=== PATIENT | female | born 1950 | race Caucasian/White ===

== ENCOUNTER → 2018-03-14 13:59 | Outpatient (CLI) | payer MEDICARE, SELFPAY ==
[2018-03-14 15:12] LABS: Albumin 4.2 g/dL (3.5-5.0); Blood Urea Nitrogen 16 mg/dL (7-17); Calcium 10.4 mg/dL (8.4-10.2); Carbon Dioxide 30 mmol/L (22-32); Chloride 106 mmol/L (98-107); Estimated Glomerular Filt Rate > 60.0 mL/min (>60); Glucose 85 mg/dL (80-110); HEMOLYSIS < 15 (0-50); Potassium 4.5 mmol/L (3.4-5.1); Sodium 144 mmol/L (137-145)
== END ==
PROVIDERS: Visit Provider Physician Assistant
DX: R10.9 Unspecified abdominal pain (principal)
CPT/HCPCS: 80069

== ENCOUNTER 2019-09-25 07:15 | Day surgery (SDC) | payer MEDICARE, SELFPAY ==
--- NOTE | 2019-09-25 | PATH_ITS ---
[facility] Accession Number: [id number] . 01 Material submitted: . PART A: duodenum - DUODENAL BIOPSY PART B: gastrointestinal site - GASTRIC MUCOSA BIOPSY PART C: gastrointestinal site - GASTRIC POLYP BIOPSY PART D: gastrointestinal site - DISTAL ESOPHAGEAL BIOPSY PART E: esophagus - MID ESOPHAGEAL BIOPSY PART F: colon - COLON BIOPSY AT 80CM PART G: colon - RECTAL SIGMOID COLON POLYP AT 25 CM . 01 Clinical history: . B: RULE OUT H.PYLORI . 02 Diagnosis: A. Duodenum, Biopsy: Duodenal mucosa with no diagnostic abnormality. Negative for active inflammation, features of sprue, dysplasia, or malignancy. . B. Stomach, Biopsy: Antral mucosa with no diagnostic abnormality. No evidence of Helicobacter organisms on H/E stain. Negative for intestinal metaplasia. Negative for dysplasia and malignancy. . C. Gastric Polyp, Biopsy: Fundic gland polyp. No evidence of Helicobacter organisms on H/E stain. Negative for intestinal metaplasia. Negative for dysplasia and malignancy. . D. Distal Esophagus, Biopsy: Squamocolumnar junctional mucosa with mild chronic inflammation. Negative for specialized intestinal metaplasia, dysplasia or malignancy. . E. Mid Esophagus, Biopsy: Squamous epithelium with mild chronic inflammation. Intraepithelial eosinophils are not increased. Negative for dysplasia or malignancy. . F. Colon At 80 CM, Biopsy: Tubular adenoma. . G. Rectosigmoid Colon, At 25 CM, Biopsy: Tubulovillous adenoma. Negative for high-grade dysplasia or malignancy. [facility] 09/26/2019 1323 Local . 02 Electronically signed: . Juan Aguilar MD, PhD, Pathologist NPI- [id number] . 01 Gross description: . Part A: DUODENAL BIOPSY: Received in formalin is 1 fragment(s) of harp, soft tissue measuring 0.2 x 0.2 x 0.2 cm submitted entirely in 1 cassette(s) Part B: GASTRIC MUCOSA BIOPSY: Received in formalin is 1 fragment(s) of harp, soft tissue measuring 0.2 x 0.2 x 0.2 cm submitted entirely in 1 cassette(s) Part C: GASTRIC POLYP BIOPSY: Received in formalin is 1 fragment(s) of harp, soft tissue measuring 0.2 x 0.2 x 0.2 cm submitted entirely in 1 cassette(s) Part D: DISTAL ESOPHAGEAL BIOPSY: Received in formalin are 3 fragment(s) of harp, soft tissue measuring 0.1 x 0.1 x 0.1 cm to 0.3 x 0.2 x 0.2 cm submitted entirely in 1 cassette(s) Part E: MID ESOPHAGEAL BIOPSY: Received in formalin is 1 fragment(s) of harp, soft tissue measuring 0.2 x 0.1 x 0.1 cm submitted entirely in 1 cassette(s) Part F: COLON BIOPSY AT 80CM: Received in formalin is 1 fragment(s) of harp, soft tissue measuring 0.2 x 0.2 x 0.2 cm submitted entirely in 1 cassette(s) Part G: RECTAL SIGMOID COLON POLYP AT 25 CM: Received in formalin is 1 fragment of harp soft tissue measuring 1.5 x 1.5 x 1.4 cm. Specimen is sectioned and submitted in its entirety in 3 cassettes. /[facility] [place]/25/20192021 Local . 02 Pathologist provided ICD-10: R12, K62.5, K31.7, K20.9, D12.6, D12.7 . 02 CPT . 344623, 017528, 343785, 961401, 581587, 023303, 320670 Performed at: 01 [facility] [address] [id number] MD Brad Helton MD Phone: [phone] Performed at: 02 [facility] [address] [place], [place] [id number] MD Bita Byers MD Phone: [phone]
[2019-09-25] MEDS: SODIUM CHLORIDE 0.9% 1,000 ML 84 ML IV (07:58)
[2019-09-25 08:09] VITALS: BP 130/76; PULSE 64; RESP 16; TEMP 36.7; O2SAT 99; BMI 22.1
[2019-09-25] MEDS: LIDOCAINE 4% SOLN 50 ML 20 ML TOP (08:25)
--- NOTE | 2019-09-25 08:30 | PM.PREOP ---
Pre-operative Note Interval Note History & Physical reviewed/Exam performed by Physician: Yes Changes to H&P: No H&P completed within 30 days and has changed as indicated here:: no changes ASA Class (for procedural sedation): II
[2019-09-25] MEDS: fentaNYL 250 MCG/5 ML INJ IV (08:34)
[2019-09-25] MEDS: MIDAZOLAM 5 MG/5 ML VIAL IV (08:34)
--- NOTE | 2019-09-25 09:36 | PM.OP.ENDO ---
Operative Date/Time/Diagnoses Date of procedure: 09/25/19 Time of procedure: 09:36 Pre-op diagnosis: Rectal bleeding, melena x1 year Post-op diagnosis: other (Gastritis, hiatal hernia, distal esophagitis, hill grade 4 hiatal hernia; large pedunculated rectosigmoid polyp at 25 cm, a small flat colon polyp at 80 cm ) Procedure & Clinicians Study performed: Diagnostic EGD and colonoscopy, cold forceps biopsies of duodenum, gastric mucosa, gastric polyp, distal esophagus, mid esophagus. Diagnostic colonoscopy, Cold forceps removal of colon polyp at 80 cm, hot snare removal of large pedunculated rectosigmoid polyp at 8:57 p.m. Same procedure as scheduled: Yes Indications: Rectal bleeding, melena Surgeon: Josefina Jiang Procedure Notes SCOAP/Timeout: Performed Procedure in detail: The patient was brought to the room and placed in left lateral decubitus position with all bony prominences padded. A time-out was performed and then the patient was given procedural sedation starting with 2 mg of Versed and [100] mcg of fentanyl. Total of 4 mg of Versed and 150 micro g of fentanyl were given for the entire procedure. Vitals were monitored throughout the procedure and remained stable. Once adequately sedated the procedure was begun. Bite block was placed affect the patient's lips, teeth, and tongue. Gastroscope was placed through the bite block across the tongue into the esophagus without incident. A tubular view of the esophagus was maintained as I advanced the gastroscope down the esophagus into the stomach. I then passed the gastroscope gently through the pylorus and into the duodenal bulb, and flexed into the 2nd and 3rd part of the duodenum. There was some low-grade duodenal inflammation. Cold forceps Biopsies were taken here. I then pulled back into the stomach, and there were some streaks of endoscopic gastritis. No ulcers, active bleeding, or exposed vessels were seen. Biopsies of gastric mucosa were taken. Multiple benign-appearing gastric polyps were seen, consistent with patient's PPI history. One polyp was biopsied. I then flexed the scope and looked up at the cardia, and the patient was seen to have a grade 4 hiatal hernia which was 3 cm in length. I then straightened the scope and pulled it back into the esophagus. There was some mucosal breaks in the Z-line, but no extensions of salmon-colored mucosa coming up into the esophagus number more than a few mm. This area was biopsied. There was some erythema in the mid esophagus. This was biopsied. The patient tolerated procedure well. The scope was then withdrawn from the patient, and attention was turned to the colonoscopy procedure. A rectal exam was performed revealing [no abnormalities]. The colonoscope was then introduced to the rectum and advanced to the cecum in the usual fashion. []The cecum was identified by the appendiceal orifice, the mucosal tri-fold, and the ileocecal valve. The scope was then retracted while rotating side to side and examining each mucosal fold. At 80 cm a small flat polyp was seen, which was removed completely with cold forceps. 25 cm from the anal verge a large pedunculated polyp was seen. Using 24 mm hot snare, the polyp was divided at its neck, and removed. I went back and took another look at the remaining stalk. It appeared clean, and hemostatic. However looking at the polyp, there was really no stalk margin on the polyp itself, so I took another 2 mm margin on the stalk with hot snare. This piece was suctioned up into the scope, but did not arrive in the Lukens trap, and could not be found after extensive investigation, even postprocedure rinsing out the scope, and looking for the specimen. The remaining stump of distal appeared clear of any hypercellular mucosa. The area was tattooed with 3 x 1 mm injections of Ira ink. One injection was done proximal, 1 distal, and 1 just across from the polypectomy site. There was no active bleeding, and no evidence of perforation. [The remainder of the colon was essentially normal.] At the conclusion of the procedure retroflexion was performed and [small grade 1-2 internal hemorrhoids without stigmata of bleeding were seen]. The scope was then withdrawn from the rectum the procedure was concluded. The patient tolerated the procedure well and was transferred to the PACU in stable condition. Scope withdrawal time: 34 Sedation minutes: 58 Findings: gastritis, hiatal hernia, polyp (Large rectosigmoid polyp, completely remove with an additional 2 mm margin on the stalk; small flat polyp at 80 cm in the colon, cold forceps biopsies of gastric mucosa, duodenal mucosa, gastric polyp, distal esophagus, mid esophagus) and possible cancer (Rectosigmoid polyp, completely remove) Specimen(s): other (Large rectosigmoid polyp; small flat polyp at 80 cm in the colon, cold forceps biopsies of gastric mucosa, duodenal mucosa, gastric polyp, distal esophagus, mid esophagus) Complications: none Impression: Low-grade gastritis, duodenitis and esophagitis no significant ulcers. Large rectal polyp, considered the likely source of rectal bleeding. Post-procedure Recommendations: Colonscopy in 1 year (Depending on biopsy results), Continue medication(s) (Continue omeprazole) and Other recommendation (Follow-up depends on biopsy results.) Follow up: as needed Disposition: PACU
[2019-09-25 09:39] VITALS: BP 134/68; PULSE 59; RESP 12; TEMP 36.4; O2SAT 100
[2019-09-25 09:44] VITALS: BP 127/71; PULSE 62; RESP 12; O2SAT 98
[2019-09-25 09:49] VITALS: BP 113/67; PULSE 62; RESP 14; O2SAT 97
[2019-09-25 10:04] VITALS: BP 134/73; PULSE 64; RESP 14; O2SAT 98
== END 2019-09-25 10:25 | disposition home or self-care (01) ==
PROVIDERS: PCP Family Medicine; Referring Provider Surgery; Visit Provider Surgery
PROC: 0DJ08ZZ Inspection of Upper Intestinal Tract, Via Natural or Artificial Opening Endoscopic (ICD-10-PCS; CPT 43235; principal; 2019-09-25 08:30)
PROC: 0DJD8ZZ Inspection of Lower Intestinal Tract, Via Natural or Artificial Opening Endoscopic (ICD-10-PCS; CPT 45378; 2019-09-25 08:30)
DX: K62.5 Hemorrhage of anus and rectum (principal); R12 Heartburn; K44.9 Diaphragmatic hernia without obstruction or gangrene; K29.71 Gastritis, unspecified, with bleeding; D12.6 Benign neoplasm of colon, unspecified; D12.7 Benign neoplasm of rectosigmoid junction; K31.7 Polyp of stomach and duodenum; K64.0 First degree hemorrhoids; K21.0 Gastro-esophageal reflux disease with esophagitis
CPT/HCPCS: 45385; 45380; 45381; 43239; 99152; 99153; J2250; J3010

== ENCOUNTER → 2021-10-14 09:40 | Outpatient (CLI) | payer MEDICARE, SELFPAY ==
--- NOTE | 2021-11-03 14:33 | PM.CARDMON.1 ---
[employer] [employer] Report Referral & Results Date Patient Seen: 10/14/21 Requesting provider: Kemal Sanders Indication: Palpitations Duration of monitoring (days): 14 Diary information: There were 38 patient triggered events and 29 patient diary entries All of these patient events were variably associated with (within 45 seconds) sinus rhythm, PACs, PVCs, SVT, and ventricular trigeminy Data: Minimum heart rate identified was 47 beats per minute at 06:46 on 10/19/2021 Maximum sinus heart rate was 129 beats per minute at 14:26 on 10/25/2021 Maximum overall heart rate was 187 beats per minute at 11:10 on 10/26/2021 during a run of SVT Less than 1% of identified beats were supraventricular ectopic in origin Approximately 2.8% of identified beats were ventricular ectopic in origin which included a 2 minute 18 second run of ventricular trigeminy There were 70 runs of SVT with the fastest being the 4 beat run at the above rate of 187 beats per minute. The longest lasted 19.4 seconds at a rate of 107 beats per minute which suggest more atrial tachycardia than true SVT There were no pauses of 3.0 seconds or longer or episodes of atrial fibrillation identified on this study Impression: 14 day monitoring coordinator demonstrating a variety of dysrhythmias none of which is clearly associated with patient events. No serious dysrhythmias identified on this study but based on frequency of rhythm disturbances PVCs are more likely than other rhythm disturbances to be a source of symptoms. Clinical correlation suggested
== END ==
PROVIDERS: PCP Family Medicine; Referring Provider Family Medicine; Visit Provider Family Medicine
DX: R00.2 Palpitations (principal)
CPT/HCPCS: 93246; 93248

== ENCOUNTER → 2021-11-24 08:54 | Outpatient (CLI) | payer MEDICARE, SELFPAY ==
--- NOTE | 2021-11-24 | DI.ECHO.S_ITS ---
[facility] +---------+ : : [address] : : : : [id number] : : : : Phone: [phone]---------+ Echocardiogram Report + + :Name: GAURAV VENEGAS Study Date: 11/24/2021 Height: 66 in : :[facility] ReadingLocation: Weight: 140 lb : : Gender: Female BSA: 1.7 m2 : :: 1950 Age: 71 yrs BP: 155/80 mmHg: :Reason For Study: DYSPNEA : :Ordering Physician: TARA, : :ELEONORA Performed By: Mansi Qureshi : :Referring: ELEONORA PACHECO : + + Interpretation Summary The left ventricle is normal in size and wall thickness. Left ventricular systolic function appears normal without focal wall motion abnormalities. The ejection fraction is estimated to be 65-70%. Diastolic parameters suggest probable normal left ventricular diastolic function and normal filling pressures. The right ventricle is normal in size and function. The left atrial size is normal. Right atrial size is normal. There is no significant valvular heart disease. The aortic root is normal size. Procedure: A two-dimensional transthoracic echocardiogram with color flow and Doppler was performed. The study quality was technically adequate. There is no prior echocardiogram noted for this patient. The patient was in sinus rhythm with heart rates between 52-66 bpm during the exam. Left Ventricle: The left ventricle is normal in size and wall thickness. Left ventricular systolic function appears normal without focal wall motion abnormalities. The ejection fraction is estimated to be 65-70%. Diastolic parameters suggest probable normal left ventricular diastolic function and normal filling pressures. Right Ventricle: The right ventricle is normal in size and function. Atria: The left atrial size is normal. Right atrial size is normal. There is no Doppler evidence for an interatrial shunt. Mitral Valve: The mitral valve is normal in structure and function. There is trace mitral regurgitation. Aortic Valve: The aortic valve is trileaflet. The aortic valve opens well. There is no aortic valve stenosis. No aortic regurgitation is present. Tricuspid Valve: There is a trace or physiologic amount of tricuspid regurgitation. Pulmonic Valve: The pulmonic valve leaflets are thin and pliable; valve motion is normal. There is no pulmonic valvular regurgitation. There is no significant valvular heart disease. Great Vessels: The aortic root is normal size. The dimensions of the ascending aorta are normal. The IVC is of normal diameter and collapses greater than 50% with a sniff. This suggests a low right atrial pressure of 3 mm Hg. Pericardium/ Pleura There is no pericardial effusion. There is no pleural effusion. MMode/2D Measurements & Calculations LVIDd: 4.4 cm LVOT diam: 1.7 cm LVIDs: 2.7 cm Ao root diam: 3.0 cm FS: 39.0 % asc Aorta Diam: 3.0 cm IVSd: 0.66 cm Ao Arch Diam (Prox Trans): 2.1 cm LVPWd: 0.96 cm LV leyva. diameter/BSA (cm/m^2): 2.6 LV sys. diameter/BSA (cm/m^2): 1.6 LA A2 area: 16.6 cm2 RA long axis: 4.2 cm LA A4 area: 13.7 cm2 RA area: 12.1 cm2 LA length (vol): 5.0 cm RA vol: 29.9 ml LA vol: 38.9 ml RA : 17.4 ml/m2 LA vol index: 22.7 ml/m2 IVC diam: 1.8 cm RVD1 (basal): 2.8 cm RVD2 (mid): 2.7 cm TAPSE: 1.8 cm Doppler Measurements & Calculations Ao V2 max: 178.8 cm/sec LVOT Max Thuan: 160.1 cm/sec Ao V2 mean: 127.7 cm/sec LV V1 max P.3 mmHg Ao max P.8 mmHg LV V1 VTI: 37.0 cm Ao mean P.2 mmHg LUIS(I,D): 2.1 cm2 Ao V2 VTI: 40.8 cm LUIS(V,D): 2.1 cm2 sev ratio: 0.91 LUIS indexed to BSA (cm^2/m^2): 1.2 MV E max thuan: 100.5 cm/sec PA V2 max: 99.3 cm/sec MV A max thuan: 88.9 cm/sec PA V2 mean: 64.5 cm/sec MV E/A: 1.1 PA mean P.0 mmHg Med Peak E' Thuan: 7.0 cm/sec PA pr(Accel): 20.8 mmHg E/E' med: 14.3 Lat Peak E' Thuan: 8.7 cm/sec E/E' lat: 11.6 E/e' average: 12.9 MV dec time: 0.25 sec SV(LVOT): 87.3 ml Reading Physician:10:55 AM
--- NOTE | 2021-11-24 | DI.NM.S_ITS ---
DATE OF SERVICE: PROCEDURE: Exercise perfusion study. INDICATION: Shortness of breath. RADIOPHARMACEUTICAL: 23.8 mCi technetium-99m Myoview IV was injected at stress and 8.5 mCi technetium-99m Myoview IV was injected at rest. CARDIAC STRESS: The patient underwent exercise perfusion study under the supervision of an attending staff. The patient walked on Abdulkadir protocol for 6 minutes and achieved 94% of target heart rate and normal blood pressure response . Resting blood pressure 140/82 mmHg. Peak blood pressure 184/80 mmHg. Achieved 7 METs of workload. Functional aerobic impairment positive 9 percent. Baseline rhythm was sinus. During stress, no convincing ischemic changes seen. Rare PVCs. No chest discomfort. Had some mild shortness of breath. Mulino fatigued during exercise. RAW DATA: Increased subdiaphragmatic activity. GATED STUDY: Stress LV ejection fraction 88%. No wall motion abnormalities. TID ratio 0.87, which is within normal limits. Lung/heart ratio 0.31, which is within normal limits. MYOCARDIAL PERFUSION SCAN: Stress supine, resting supine and stress prone images were compared to each other. Stress supine and resting supine images revealed minimally decreased perfusion of anterior apex which got resolved during prone images suggestive of breast tissue attenuation artifact. Stress prone images revealed normal myocardial perfusion. CONCLUSION: This is a normal myocardial perfusion study. Diminished exercise tolerance. Normal hemodynamic response. The stress left ventricular ejection fraction is 88 percent. No anginal symptoms. No significant sustained arrhythmias seen. Overall low-risk exercise perfusion study. Charo Chris - JUAREZ/eber/REVA doc#: [id number]/job#: [id number] dd: 11/24/2021 17:18:00 dt: 11/24/2021 19:34:00 DICTATING MD/COPIES TO: Erica Gonzalez MD COPIES MNE: CEDRIC;
[2021-11-24 10:41] LABS: COVID19 -Nasal RAPID Negative (Negative)
== END ==
PROVIDERS: PCP Family Medicine; Referring Provider Family Medicine; Visit Provider Family Medicine
DX: R06.09 Other forms of dyspnea (principal); R07.89 Other chest pain; R00.2 Palpitations; Z86.16 Personal history of COVID-19; Z20.822 Contact with and (suspected) exposure to COVID-19
CPT/HCPCS: 78452; 87635; 93017; 93306; A9502

== ENCOUNTER 2022-09-19 11:42 | Emergency (ER) | payer MEDICARE, SELFPAY ==
[2022-09-19] VITALS (29 sets, daily range): BP systolic 122–173; BP diastolic 65–88; PULSE 59–72; RESP 12–31; TEMP 36.4–36.5; O2SAT 91–99; BMI 21.7
--- NOTE | 2022-09-19 11:52 | DI.RAD.S_ITS ---
PROCEDURE: XR CHEST 1V INDICATIONS: chest pain TECHNIQUE: One view of the chest was acquired. COMPARISON: None. FINDINGS: Surgical changes and devices: None. Lungs and pleura: Lungs are clear. No pleural effusions or pneumothorax. Mediastinum: Mediastinal contours appear normal. Heart size is normal. Bones and chest wall: No suspicious bony lesions. Overlying soft tissues appear unremarkable. Left cervical rib. IMPRESSION: No acute cardiopulmonary findings. Dictated by: Robert Pemberton M.D. on 09/19/2022 at 11:25 Approved by: Robert Pemberton M.D. on 09/19/2022 at 11:26
[2022-09-19 12:03] LABS: Add Manual Diff / Slide Review NO; Basophils Absolute Auto 100 /uL (0-100); Basophils Percent Auto 1.1 % (0-2); Eosinophils Absolute Auto 500 /uL (0-450); Eosinophils Percent Auto 7.1 % (2-4); Hematocrit 41.1 % (36-46); Hemoglobin 13.8 g/dL (12.0-16.0); Lymphocytes Absolute Auto 2700 /uL (1100-4500); Lymphocytes Percent Auto 38.7 % (25-40); Mean Corpuscular HGB Conc 33.6 % (30-36); Mean Corpuscular Hemoglobin 31.5 PG (26-34); Mean Corpuscular Volume 93.6 fL (80-100); Monocytes Absolute Auto 600 /uL (0-900); Neutrophils Absolute Auto 3100 /uL (1500-7000); Neutrophils Percent Auto 44.1 % (50-75); Platelet Count 260 X10^3/uL (150-400); Red Cell Distribution Width 13.4 % (11.6-14.8)
[2022-09-19 12:08] LABS: Prothrombin Time 11.4 SECONDS (10.1-12.7)
[2022-09-19 12:10] LABS: PTT Partial Thromboplastin Tim 33 SECONDS (26-36)
[2022-09-19 12:12] LABS: Alanine Aminotransferase 25 IU/L (<35); Albumin 4.3 g/dL (3.5-5.0); Albumin Globulin Ratio 1.3 (1.0-2.8); Alkaline Phosphatase 80 U/L (38-126); Aspartate Aminotransferase 28 IU/L (14-36); BUN Creatinine Ratio 25.5 (6-22); Bilirubin Total 0.5 mg/dL (0.2-1.3); Blood Urea Nitrogen 24 mg/dL (7-17); Calcium 10.6 mg/dL (8.4-10.2); Carbon Dioxide 30 mmol/L (22-32); Chloride 103 mmol/L (98-107); Creatine Kinase 86 U/L (30-135); Estimated Glomerular Filt Rate > 60 mL/min (>60); Globulin 3.4 g/dL (1.7-4.1); Glucose 89 mg/dL (80-110); HEMOLYSIS < 15 (0-50); Lipase 68 U/L (23-300); Sodium 138 mmol/L (137-145); Total Protein 7.7 g/dL (6.3-8.2)
[2022-09-19 12:23] LABS: Troponin I 0.054 ng/mL (0.01-0.034)
--- NOTE | 2022-09-19 13:36 | ED.CHESTPAIN ---
HPI - Chest Pain General Chief Complaint: Shortness of Breath/Dyspnea Stated Complaint: lung congestion 2 mon, cough, low oxy, wheez Time Seen by Provider: 09/19/22 12:07 History of Present Illness HPI narrative: Patient comes to the ER today with chest pain. She is noticed over the past week or so that with any degree of exertion she has precordial pain that is aching and burning and radiating to her neck and jaw and shoulders and arms. The pain will last as long as she is exerting herself and then takes 10-15 minutes to resolve completely. She has been having a little bit more trouble with her asthma lately but the shortness of breath does not seem to be more prominent when she is having the chest pain. It is not associated with nausea or diaphoresis. She has no known coronary disease to her knowledge. She does not smoke cigarettes. She does not have hypertension or diabetes. Related Data Home Medications Medication Instructions Recorded Confirmed myalmgx-vuttewwmyuyvh-xtpetikc 250 1 tab PO DAILY ##0 07/04/17 09/25/19 mg-250 mg-65 mg tablet (Excedrin Migraine) omeprazole magnesium 20 mg 20 mg PO DAILY 09/07/19 09/25/19 capsule,delayed release (Acid Fly Rail Operator (omeprazole)) plexus supplements PO 09/07/19 Previous Rx's Medication Instructions Recorded albuterol sulfate 90 mcg/actuation 1 inhalation inhalation Q4-6H PRN 01/30/18 aerosol inhaler cough #8 grams Allergies Allergy/AdvReac Type Severity Reaction Status Date / Time Rizdxsu-BHC-MvY Reductase Allergy Severe Back Pain Verified 09/25/19 08:02 Inhibitor [Hlvpbyo-Cbj-Aqa Reductase Inhibitor] morphine Allergy Intermediate Hives Verified 09/25/19 08:02 Patient History Surgical History History of dental surgery History of tonsillectomy and adenoidectomy Hx of dilation and curettage Family History Father Heart disease Gallstones Brother Cancer Social History marital status: household members: spouse and children occupational status: employed Smoking Status: Never smoker alcohol intake: never substance use type: does not use Smoking Status: Never smoker Substance Use Type: does not use Exam Narrative Exam Narrative: GENERAL: Alert, cooperative and in no distress. HEAD: Atraumatic. Normocephalic. EYES: Sclera are clear without icterus. Extraocular movements are full. ENT: No rhinorrhea. Oropharynx is moist. Mouth exam is benign. NECK: Supple. Full range of motion. CARDIOVASCULAR: Normal rate and rhythm without murmur gallop or rub. RESPIRATORY: Clear to auscultation. Breath sounds equal bilaterally. No wheezes, rales, or rhonchi. GASTROINTESTINAL: Abdomen soft, non-tender, nondistended. EXTREMITIES: No edema, full range of motion. No obvious trauma. BACK: Normal inspection, no CVA tenderness. NEURO: Nonfocal examination, normal speech, normal gait. SKIN: No rash or erythema of visible areas PSYCH: Normally oriented. Normal range of affect. Appropriate behavior Initial Vital Signs Initial Vital Signs: Vital Signs Pulse Rate 70 09/19/22 11:48 Pulse Oximetry 98 09/19/22 11:48 Course Course Course Narrative: Initial troponin is mildly elevated. Aspirin is administered. We will get a 2nd troponin. I am certainly considering hospitalization. She is symptom-free at this time. I spoke to Dr. Powers about this patient who agrees to consult on the patient if the patient comes to hit her facility. She believes the patient needs detailed ischemic workup. I also spoke to Feliciano Calvillo from the hospitalist group who agrees to accept the patient onto his service. Critical care time is 35 minutes. Orders Ordered: ED Orders 09/19/22 11:52 XR chest 1V Stat 09/19/22 11:53 Complete Blood Count AUTO DIFF Stat Comprehensive Metabolic Panel Stat Lipase Stat Magnesium Stat PTT Partial Thromboplastin Saman Stat Prothrombin Time INR Stat Troponin & CK Cardiac Panel Stat 09/19/22 11:57 EKG-12 Lead Stat 09/19/22 13:44 Trop I [Troponin I] Stat 09/19/22 14:46 COVID19 -Nasal RAPID Stat Heparin Sodium/Dextrose (Heparin Drip) 25,000 unit in 500 mls @ 14.696 mls/hr IV CONT CAMELIA; Protocol Discontinued Medications Aspirin (Aspirin 81 Mg Chew Tab) 324 mg PO NOW ONE Stop: 09/19/22 14:51 Aspirin (Aspirin Ec 81 Mg Tablet) 81 mg PO NOW ONE Stop: 09/19/22 15:15 Heparin Sodium (Porcine) (Heparin 5,000 Unit/Ml Vial) 4,000 unit IV NOW ONE Stop: 09/19/22 14:56 Vital Signs Vital signs: Vital Signs - 8 hr 09/19/22 11:52 09/19/22 11:48 09/19/22 12:00 Temperature 97.7 F Pulse Rate 72 70 69 Respiratory Rate 16 20 Blood Pressure 173/88 H Pulse Oximetry 98 98 99 Oxygen Delivery Method Room Air 09/19/22 12:30 09/19/22 13:00 09/19/22 13:13 Temperature Pulse Rate 64 65 Respiratory Rate 20 21 Blood Pressure 138/76 Pulse Oximetry 94 93 Oxygen Delivery Method 09/19/22 13:13 09/19/22 13:30 09/19/22 14:00 Temperature Pulse Rate 60 64 59 L Respiratory Rate 15 20 18 Blood Pressure Pulse Oximetry 94 92 94 Oxygen Delivery Method 09/19/22 14:30 Temperature Pulse Rate 62 Respiratory Rate 21 Blood Pressure Pulse Oximetry 95 Oxygen Delivery Method MDM - Chest Pain Lab Data 09/19/22 11:53 09/19/22 11:53 Labs: Lab Results 09/19/22 09/19/22 09/19/22 Range/Units 11:53 11:53 11:53 WBC 7.0 (4.5-11.0) X10^3/uL RBC 4.40 (4.0-5.2) X10^6/uL Hgb 13.8 (12.0-16.0) g/dL Hct 41.1 (36-46) % MCV 93.6 (80-100) fL MCH 31.5 (26-34) PG MCHC 33.6 (30-36) % RDW 13.4 (11.6-14.8) % Plt Count 260 (150-400) X10^3/uL Neut % (Auto) 44.1 L (50-75) % Lymph % (Auto) 38.7 (25-40) % [place] % (Auto) 9.0 (3-14) % Eos % (Auto) 7.1 H (2-4) % Baso % (Auto) 1.1 (0-2) % Neut # (Auto) 3100 (2833-9213) /uL Lymph # (Auto) 2700 (5765-5629) /uL [place] # (Auto) 600 (0-900) /uL Eos # (Auto) 500 H (0-450) /uL Baso # (Auto) 100 (0-100) /uL PT 11.4 (10.1-12.7) SECONDS INR 1.0 (0.9-1.3) APTT 33 (26-36) SECONDS Sodium 138 (137-145) mmol/L Potassium 4.0 (3.4-5.1) mmol/L Chloride 103 (98-107) mmol/L Carbon Dioxide 30 (22-32) mmol/L BUN 24 H (7-17) mg/dL Creatinine 0.94 (0.52-1.04) mg/dL Estimated GFR > 60 (>60) mL/min BUN/Creatinine Ratio 25.5 H (6-22) Glucose 89 (80-110) mg/dL Calcium 10.6 H (8.4-10.2) mg/dL Magnesium 2.0 (1.6-2.3) mg/dL Total Bilirubin 0.5 (0.2-1.3) mg/dL AST 28 (14-36) IU/L ALT 25 (<35) IU/L Alkaline Phosphatase 80 (38-126) U/L Total Creatine Kinase 86 (30-135) U/L CK-MB (CK-2) TNP CK-MB (CK-2) Rel Index TNP Troponin I 0.054 H (0.01-0.034) ng/mL Total Protein 7.7 (6.3-8.2) g/dL Albumin 4.3 (3.5-5.0) g/dL Globulin 3.4 (1.7-4.1) g/dL Albumin/Globulin Ratio 1.3 (1.0-2.8) Lipase 68 (23-300) U/L SARS-CoV-2 (PCR) (Negative) 09/19/22 09/19/22 Range/Units 13:44 14:46 WBC (4.5-11.0) X10^3/uL RBC (4.0-5.2) X10^6/uL Hgb (12.0-16.0) g/dL Hct (36-46) % MCV (80-100) fL MCH (26-34) PG MCHC (30-36) % RDW (11.6-14.8) % Plt Count (150-400) X10^3/uL Neut % (Auto) (50-75) % Lymph % (Auto) (25-40) % [place] % (Auto) (3-14) % Eos % (Auto) (2-4) % Baso % (Auto) (0-2) % Neut # (Auto) (0980-1082) /uL Lymph # (Auto) (0658-2482) /uL [place] # (Auto) (0-900) /uL Eos # (Auto) (0-450) /uL Baso # (Auto) (0-100) /uL PT (10.1-12.7) SECONDS INR (0.9-1.3) APTT (26-36) SECONDS Sodium (137-145) mmol/L Potassium (3.4-5.1) mmol/L Chloride (98-107) mmol/L Carbon Dioxide (22-32) mmol/L BUN (7-17) mg/dL Creatinine (0.52-1.04) mg/dL Estimated GFR (>60) mL/min BUN/Creatinine Ratio (6-22) Glucose (80-110) mg/dL Calcium (8.4-10.2) mg/dL Magnesium (1.6-2.3) mg/dL Total Bilirubin (0.2-1.3) mg/dL AST (14-36) IU/L ALT (<35) IU/L Alkaline Phosphatase (38-126) U/L Total Creatine Kinase (30-135) U/L CK-MB (CK-2) CK-MB (CK-2) Rel Index Troponin I 0.073 H (0.01-0.034) ng/mL Total Protein (6.3-8.2) g/dL Albumin (3.5-5.0) g/dL Globulin (1.7-4.1) g/dL Albumin/Globulin Ratio (1.0-2.8) Lipase (23-300) U/L SARS-CoV-2 (PCR) Negative (Negative) Urine Dip Bedside Urine Glucose Negative Bedside Urine Bilirubin - Negative Bedside Urine Ketone - Negative Urine Specific [employer] 1.010 Bedside Urine Occult Blood - Negative Bedside Urine pH 7.0 Bedside Urine Protein - Negative Bedside Urine Urobilinogen - Negative Bedside Urine Nitrite - Negative Bedside Urine Leukocytes - Negative Esterase Critical Care Time Critical Care Time Critical Care Time: Yes Total Critical Care Time: 35 Attestation: Time spent in consultation with other providers interpreting in ordering lab and imaging tests. Discussion and consent with the patient. Discharge Plan Departure Patient Disposition: [facility] Clinical Impression: Acute non-ST elevation myocardial infarction (NSTEMI) Prescriptions: No Action albuterol sulfate 90 mcg/actuation HFA aerosol inhaler 1 inhalation INHALATION Q4-6H PRN (Reason: cough) Qty: 8 0RF Rx Instructions: administer with spacer Excedrin Migraine 1 EACH tablet 1 tab PO DAILY Qty: 0 omeprazole magnesium [Acid Fly Rail Operator (omeprazole)] 20 mg capsule,delayed release(DR/EC) 20 mg PO DAILY plexus supplements PO Referrals: Kemal Sanders MD [Primary Care Provider] -
[2022-09-19 14:26] LABS: Troponin I 0.073 ng/mL (0.01-0.034)
[2022-09-19 15:10] LABS: COVID19 -Nasal RAPID Negative (Negative)
[2022-09-19] MEDS: HEPARIN 5,000 UNIT/ML VIAL 4000 UNIT IV (16:40)
[2022-09-19] MEDS: HEPARIN DRIP 25,000 UNIT/500 ML IV.SOLN 14.696 UNIT IV (16:46)
[2022-09-19] MEDS: ASPIRIN EC 81 MG TABLET PO (16:55)
--- NOTE | 2022-09-19 18:31 | PC.NURSE ---
pt. being xfer to [facility] via [facility] p/u is arranged for 20:00. Philly @ [facility] gave RN report number [phone], uncertain of RN will be at [facility] because of shift change.
--- NOTE | 2022-09-19 19:26 | PC.NURSE ---
Report given to Araceli @ [facility] [phone] @[id number]
== END 2022-09-19 20:09 | disposition short-term general hospital (02) ==
PROVIDERS: Emergency Provider Family Medicine Addiction Medicine; PCP Family Medicine
DX: I21.4 Non-ST elevation (NSTEMI) myocardial infarction (principal); Z20.822 Contact with and (suspected) exposure to COVID-19
CPT/HCPCS: 36415; 71045; 80053; 81003; 82550; 83690; 83735; 84484; 85025; 85610; 85730; 87635; 93005; 93010; 96374; 99284; 99291; C9803; J1644

== ENCOUNTER → 2025-01-07 16:34 | Outpatient (CLI) | payer MEDICARE, SELFPAY ==
--- NOTE | 2025-01-07 16:36 | DI.US.S_ITS ---
PROCEDURE: US PERIPH VENOUS LOW EXTREM LT INDICATIONS: phlebitis of lt leg TECHNIQUE: Real-time imaging, as well as color and pulse Doppler interrogation, were performed of the lower extremity deep veins from the inguinal ligament to the popliteal fossa, with documentation of the visualized calf veins. COMPARISON: None. FINDINGS: The common femoral, femoral, popliteal, and the posterior tibial veins are normally compressible, and free of intraluminal thrombus. Color and pulse Doppler demonstrate normal phasic intraluminal flow. Again noted relatively unchanged is occlusive thrombus diffusely throughout the greater saphenous vein from approximately 5 cm from the junction with the common femoral vein into the lower leg. IMPRESSION: Diffuse occlusive thrombus relatively unchanged throughout the greater saphenous vein and superficial varicose veins. No deep vein thrombosis as discussed above. Dictated by: Feliciano Phillips M.D. on 01/08/2025 at 9:23 Approved by: Feliciano Phillips M.D. on 01/08/2025 at 9:46
== END ==
PROVIDERS: PCP Family Medicine; Referring Provider Family Medicine; Visit Provider Family Medicine
DX: I80.02 Phlebitis and thrombophlebitis of superficial vessels of left lower extremity (principal)
CPT/HCPCS: 93971

== ENCOUNTER 2025-04-05 09:50 | Inpatient (IN) | payer MEDICARE, SELFPAY ==
[2025-04-05] VITALS (25 sets, daily range): BP systolic 122–176; BP diastolic 54–79; PULSE 77–97; RESP 16–28; TEMP 36.1–36.9; O2SAT 88–97; BMI 21.9
--- NOTE | 2025-04-05 09:57 | DI.RAD.S_ITS ---
PROCEDURE: XR CHEST 2V INDICATIONS: sob TECHNIQUE: 2 views of the chest were acquired. COMPARISON: [facility], CT, CT ANGIO CHEST PE PROTOCOL, 02/26/2025, 12:59. [facility], CR, XR CHEST 1V, 02/26/2025, 11:38. [facility], CR, XR CHEST 1V, 09/19/2022, 11:49. FINDINGS: Surgical changes and devices: Multiple EKG leads overlie the thorax. Lungs and pleura: Lungs are clear. No pleural effusions or pneumothorax. Lungs are hyperinflated. Mediastinum: Mediastinal contours are normal. Heart size is normal. Bones and chest wall: No suspicious bony abnormalities. Soft tissues appear unremarkable. IMPRESSION: No acute cardiopulmonary abnormality is seen. Dictated by: Angi Lua M.D. on 04/05/2025 at 11:11 Approved by: Angi Lua M.D. on 04/05/2025 at 11:17
[2025-04-05] MEDS: ALBUTEROL/IPRATROPIUM 3 ML AMPUL INH ×2 (10:02→11:32)
[2025-04-05] MEDS: ALBUTEROL 2.5 MG/3 ML NEB (ADULT) INH ×2 (10:03→19:32)
--- NOTE | 2025-04-05 10:45 | ED_ITS ---
HPI - SOB/Dyspnea General Chief Complaint: Shortness of Breath/Dyspnea Stated Complaint: Shortness of breath Time Seen by Provider: 04/05/25 09:50 Source: patient and EMS Mode of arrival: EMS Limitations: no limitations History of Present Illness HPI Narrative: 74-year-old female history of asthma presents to the emergency department with shortness of breath for 3 days. She has noted wheezing. She has had respiratory infection for 3 days with cough and runny nose. No fever that she knows of. No chest discomfort. No lower extremity swelling. She has history of superficial blood clots and says is prescribed Eliquis, has not missed any doses. Related Data Home Medications ?Medication ?Instructions ?Recorded ?Confirmed plexus supplements 09/07/19 04/05/25 apixaban 5 mg tablet (Eliquis) 5 mg PO BID 04/05/25 pantoprazole 40 mg tablet,delayed 40 mg PO DAILY 04/0504/05/25 release Previous Rx's ?Medication ?Instructions ?Recorded albuterol sulfate 90 mcg/actuation 1 inhalation inhala tion Q4-6H PRN 01/30/18 aerosol inhaler cough #8 grams albuterol sulfate 2.5 mg/3 mL 2.5 mg (3 mL) inhalation Q4-6H PRN 02/26/25 (0.083 %) solution for nebulization shortness of breat h or wheezing #90 mL albuterol sulfate 90 mcg/actuation 2 puff inhalation Q 4-6H PRN 02/26/25 aerosol inhaler shortness of breath or wheez ing #8.5 grams azithromycin 250 mg tablet 250 mg PO DAILY 4 days #4 t abs 04/06/25 (Zithromax) budesonide-formoterol HFA 160 2 puff inhalation BID #1 0.2 grams 04/06/25 mcg-4.5 mcg/actuation aerosol inhaler (Symbicort) prednisone 20 mg tablet 60 mg (3 x 20 mg) PO DAILY # 30 tabs 04/06/25 Allergies Allergy/AdvReac Type Severity Reaction Status Date / Time Csnwsad-PXQ-JgL Reductase Allergy Severe Back Pain Verified 02/26/25 11:35 Inhibitor (Owlavgs-Gpo-Kay Reductase Inhibitor) morphine Allergy Intermediate Hives Verified 02/26/25 11:35 Review of Systems Review of Systems Narrative: Pertinent ROS obtained and negative except as stated in HPI Patient History Surgical History History of dental surgery Hx of dilation and curettage History of tonsillectomy and adenoidectomy Family History Father Heart disease Gallstones Brother Cancer Social History marital status: household members: spouse and children occupational status: employed Smoking Status: Never smoker alcohol intake: never substance use type: does not use Smoking Status: Never smoker Exam Initial Vital Signs Initial Vital Signs: Vital Signs Temperature 98 F 04/05/25 09:59 Pulse Rate 89 04/05/25 09:59 Respiratory Rate 25 H 04/05/25 09:59 Blood Pressure 176/79 H 04/05/25 09:59 Pulse Oximetry 92 04/05/25 09:59 Oxygen Delivery Method Room Air 04/05/25 09:59 Constitutional: 74-year-old female resting in the bed, appears slightly anxious, expiratory wheeze noted Head: NCAT Cardiovascular: RRR, no murmur or rub Pulmonary: Slightly diminished with expiratory wheeze diffusely, slight increased work of breathing Abdominal: soft, non-tender Extremities: No LE edema Skin: warm and dry, no diaphoresis Neurological: Alert and oriented x3 Course Orders Ordered: Discontinued Medications Acetaminophen (Acetaminophen 325 Mg Tablet) 650 mg PO Q6H PRN PRN Reason: Fever/Mild Pain (1-3) Al Hydrox/Mg Hydrox/Simethicone (Mag Hydrox/Alum/Simeth 30 Ml Udc) 30 ml PO Q6HR PRN PRN Reason: Dyspepsia Albuterol (Albuterol 2.5 Mg/3 Ml Neb (Adult)) 2.5 mg INH NOW ONE Stop: 04/05/25 09:58 Last Admin: 04/05/25 10:03 Dose: 2.5 mg Documented By: SUHAIL Albuterol (Albuterol 2.5 Mg/3 Ml Neb (Adult)) 5 mg INH NOW ONE Stop: 04/05/25 13:16 Last Admin: 04/05/25 13:12 Dose: 5 mg Documented By: PERLA Albuterol (Albuterol 2.5 Mg/3 Ml Neb (Adult)) 2.5 mg INH [id number] [facility] Last Admin: 04/06/25 07:47 Dose: 2.5 mg Documented By: SUHAIL(2) Admin: 04/05/25 22:16 Dose: Not Given Documented By: Admin: 04/05/25 19:32 Dose: 2.5 mg Documented By: RAMON Albuterol/Ipratropium (Albuterol/Ipratropium 3 Ml Ampul) 3 ml INH NOW ONE Stop: 04/05/25 09:58 Last Admin: 04/05/25 10:02 Dose: 3 ml Documented By: SUHAIL Albuterol/Ipratropium (Albuterol/Ipratropium 3 Ml Ampul) 3 ml INH NOW ONE Stop: 04/05/25 09:58 Last Admin: 04/05/25 10:03 Dose: Not Given Documented By: SUHAIL Albuterol/Ipratropium (Albuterol/Ipratropium 3 Ml Ampul) 3 ml INH NOW ONE Stop: 04/05/25 11:22 Last Admin: 04/05/25 11:32 Dose: 3 ml Documented By: SUHAIL Apixaban (Apixaban 5 Mg Tablet) 5 mg PO BID [facility] Last Admin: 04/06/25 09:02 Dose: 5 mg Documented By: Admin: 04/05/25 20:09 Dose: 5 mg Documented By: EVAN Budesonide (Budesonide 0.5 Mg/2 Ml Neb) 0.5 mg INH RTBID [facility] Last Admin: 04/06/25 07:47 Dose: 0.5 mg Documented By: SUHAIL(2) Admin: 04/05/25 19:32 Dose: 0.5 mg Documented By: RAMON Azithromycin 500 mg/ Dextrose 250 mls @ 250 mls/hr IV Q24H [facility] Last Infusion: 04/05/25 22:03 Dose: Infused Documented By: Admin: 04/05/25 20:07 Dose: 250 mls/hr Documented By: EVAN Magnesium Hydroxide (Magnesium Hydroxide 30 Ml Udc) 30 ml PO DAILY PRN PRN Reason: Constipation Methylprednisolone (Methylprednisolone Succ 125 Mg/2 Ml Vial) 60 mg IV Q6H [facility] Last Admin: 04/06/25 09:09 Dose: Not Given Documented By: Admin: 04/06/25 00:28 Dose: 60 mg Documented By: Admin: 04/05/25 20:07 Dose: 60 mg Documented By: EVAN Naloxone HCl (Naloxone 0.4 Mg/Ml Vial) 0.2 mg IV Q2MIN PRN PRN Reason: Opiate Reversal Ondansetron HCl (Ondansetron 4 Mg/2 Ml Inj) 4 mg IV Q8HR PRN PRN Reason: Nausea And Vomiting Pantoprazole Sodium (Pantoprazole Dr 40 Mg Tablet) 40 mg PO DAILY [facility] Last Admin: 04/06/25 09:02 Dose: 40 mg Documented By: BRIAN Prednisone (Prednisone 20 Mg Tablet) 40 mg PO NOW ONE Stop: 04/05/25 09:58 Last Admin: 04/05/25 10:08 Dose: 40 mg Documented By: JANAE Vital Signs Vital signs: Vital Signs - 8 hr 04/05/25 09:59 04/05/25 10:03 Temperature 98 F Pulse Rate 89 84 Respiratory Rate 25 H 19 Blood Pressure 176/79 H Pulse Oximetry 92 95 Oxygen Delivery Method Room Air Room Air MDM - SOB/Dyspnea Lab Data 04/05/25 14:55 04/05/25 15:27 Labs: Lab Results 04/05/25 04/05/25 Range/Units 11:20 14:55 WBC 8.4 (4.5-11.0) X10^3/uL RBC 4.47 (4.0-5.2) X10^6/uL Hgb 13.6 (12.0-16.0) g/dL Hct 41.6 (36-46) % MCV 93.1 (80-100) fL MCH 30.5 (26-34) PG MCHC 32.8 (30-36) % RDW 14.5 (11.6-14.8) % Plt Count 230 (150-400) X10^3/uL Neut % (Auto) 93.2 H (50-75) % Lymph % (Auto) 4.9 L (25-40) % [place] % (Auto) 1.5 L (3-14) % Eos % (Auto) 0.2 L (2-4) % Baso % (Auto) 0.2 (0-2) % Neut # (Auto) 7800 H (4071-2251) /uL Lymph # (Auto) 400 L (4355-8098) /uL [place] # (Auto) 100 (0-900) /uL Eos # (Auto) 0 (0-450) /uL Baso # (Auto) 0 (0-100) /uL SARS-CoV-2 (PCR) Negative (Negative) Influenza A (RT-PCR) Flu a negative (NEGATIVE) Influenza B (RT-PCR) Flu b negative (NEGATIVE) RSV (PCR) Negative (Negative) MDM Narrative Medical decision making narrative: 74-year-old female history of asthma presents with shortness of breath in the setting of recent URI illness. She received DuoNeb in route and feeling a bit improved but not at baseline. We will give additional DuoNeb, obtain two-view chest x-ray to evaluate for possible pneumonia. Low suspicion for pulmonary embolism given his already anticoagulated and in the absence of chest pain. Clinical picture is most consistent with asthma exacerbation however, if not responding to treatment or new symptoms develop may consider broadening workup On reassessment after serial DuoNebs the patient continues to feel improved although breathing not quite back to baseline. She requires intermittent nasal cannula 2-3 L for hypoxia between treatments. Chest x-ray does not show evidence of pneumonia. Basic laboratories are ordered. Anticipate admission Discharge Plan Departure Patient Disposition: Admitted as Observation Clinical Impression: Asthma exacerbation Admit Date/Time: 04/05/25 15:19 Admit Provider: Kemal Sanders
[2025-04-05 12:10] LABS: Influenza A - CEPHEID Flu A NEGATIVE (NEGATIVE); Influenza B - CEPHEID Flu B NEGATIVE (NEGATIVE)
[2025-04-05 12:11] LABS: COVID-19 CEPHEID 4-PLEX PCR Negative (Negative)
[2025-04-05] MEDS: ALBUTEROL 2.5 MG/3 ML NEB (ADULT) 5 MG INH (13:12)
[2025-04-05 15:02] LABS: Add Manual Diff / Slide Review NO; Hematocrit 41.6 % (36-46); Hemoglobin 13.6 g/dL (12.0-16.0); Lymphocytes Absolute Auto 400 /uL (1100-4500); Mean Corpuscular HGB Conc 32.8 % (30-36); Mean Corpuscular Hemoglobin 30.5 PG (26-34); Mean Corpuscular Volume 93.1 fL (80-100); Platelet Count 230 X10^3/uL (150-400)
--- NOTE | 2025-04-05 15:16 | EKG_ITS ---
[address] [address] Test Date: 2025-04-05 Pat Name: Charo Chris Department: [facility] Room: Gender: Female Manager Digital: MARCEL : 1950 Requested By: Order Number: [id number] Reading MD: Marcus Lua Measurements Intervals [place] Rate: 95 P: 68 [place]: 136 QRS: 61 QRSD: 94 T: 70 QT: 380 QTc: 477 Interpretive Statements Normal sinus rhythm Electronically Signed On 04-05-2025 18:46:38 PDT by Marcus Lua
[2025-04-05 16:02] LABS: Blood Urea Nitrogen 15 mg/dL (7-17); Calcium 10.8 mg/dL (8.4-10.2); Carbon Dioxide 26 mmol/L (22-32); Chloride 106 mmol/L (98-107); Estimated Glomerular Filt Rate > 60 mL/min (>60); Glucose 157 mg/dL (70-99); HEMOLYSIS < 15 (0-50); Potassium 3.8 mmol/L (3.4-5.1); Sodium 137 mmol/L (137-145)
--- NOTE | 2025-04-05 18:20 | P.HP_ITS ---
History of Present Illness History of Present Illness Date Patient Seen: 04/05/25 Time Patient Seen: 18:20 Date of Onset of Symptoms: 04/05/25 Chief complaint: Shortness of breath Narrative: Patient is a 74-year-old female who has history of asthma. Three weeks ago she was seen in the emergency room for increasing shortness a breath. She was given nebulizers and 5 days of steroids and she cleared. Three days ago she started having issues again. Patient has had no fevers no chills but definitely short of breath. Using her inhaled albuterol. She had been on a Advair similar inhaler in the past but has not been using it. She has had no other changes just progressive shortness of breath. No one else around her has been sick. She does feel like sometimes she gets a cold and this is what happens. There was no other changes. Patient is otherwise healthy with no major issues. Has a history of reflux. Has a history of superficial thrombophlebitis a goes to her upper thigh so she was started on anticoagulation. Has been on that. She has no other significant changes [facility] Surgical History History of dental surgery Hx of dilation and curettage History of tonsillectomy and adenoidectomy Family History Father Heart disease Gallstones Brother Cancer Social History marital status: household members: spouse and children occupational status: employed Smoking Status: Never smoker alcohol intake: never substance use type: does not use Meds Home Medications and Allergies Home Medications ?Medication ?Instructions ?Recorded ?Confirmed ?Type albuterol sulfate 90 mcg/actuation 1 inhalation inhala tion Q4-6H PRN 01/30/18 04/05/25 Rx aerosol inhaler cough #8 grams plexus supplements 09/07/19 04/05/25 History albuterol sulfate 2.5 mg/3 mL 2.5 mg (3 mL) inhalation Q4-6H PRN 02/26/25 04/05/25 Rx (0.083 %) solution for nebulization shortness of breat h or wheezing #90 mL albuterol sulfate 90 mcg/actuation 2 puff inhalation Q 4-6H PRN 02/26/25 04/05/25 Rx aerosol inhaler shortness of breath or wheez ing #8.5 grams apixaban 5 mg tablet (Eliquis) 5 mg PO BID 04/05/25 History pantoprazole 40 mg tablet,delayed 40 mg PO DAILY 04/0504/05/25 History release Allergies Allergy/AdvReac Type Severity Reaction Status Date / Time [id number]-[id number] Reductase Allergy Severe Back Pain Verified 02/26/25 11:35 Inhibitor (Bgffsyq-Bzj-Lsp Reductase Inhibitor) morphine Allergy Intermediate Hives Verified 02/26/25 11:35 Review of Systems Review of Systems Narrative: Negative except as above Exam Vital Signs (past 8 hours): - 04/05/25 10:45 04/05/25 11:00 04/05/25 11:00 Temperature Pulse Rate 80 79 Respiratory Rate 20 21 Blood Pressure 152/76 H Pulse Oximetry 88 L 90 L Oxygen Delivery Method Room Air Room Air Oxygen Flow Rate 04/05/25 11:20 04/05/25 11:20 04/05/25 11:30 Temperature Pulse Rate 77 Respiratory Rate 23 Blood Pressure 131/79 154/76 H Pulse Oximetry 93 Oxygen Delivery Method Nasal Cannula Oxygen Flow Rate 2 04/05/25 11:30 04/05/25 11:33 04/05/25 12:00 Temperature Pulse Rate 77 81 88 Respiratory Rate 21 20 Blood Pressure Pulse Oximetry 97 96 93 Oxygen Delivery Method Nasal Cannula Nasal Cannula Room Air Oxygen Flow Rate 2 3 04/05/25 12:00 04/05/25 12:30 04/05/25 12:30 Temperature Pulse Rate 86 Respiratory Rate Blood Pressure 160/76 H 153/72 H Pulse Oximetry 92 Oxygen Delivery Method Oxygen Flow Rate 04/05/25 12:30 04/05/25 12:30 04/05/25 12:53 Temperature Pulse Rate 86 Respiratory Rate 26 H Blood Pressure 153/72 H Pulse Oximetry 92 90 L Oxygen Delivery Method Room Air Room Air Oxygen Flow Rate 04/05/25 13:00 04/05/25 13:00 04/05/25 13:15 Temperature Pulse Rate 86 86 Respiratory Rate 28 H Blood Pressure 148/73 H Pulse Oximetry 94 95 Oxygen Delivery Method Nasal Cannula Oxygen Flow Rate 2 04/05/25 13:30 04/05/25 13:30 04/05/25 14:00 Temperature Pulse Rate 86 91 H Respiratory Rate 23 Blood Pressure 156/71 H Pulse Oximetry 95 94 Oxygen Delivery Method Nasal Cannula Oxygen Flow Rate 2 04/05/25 14:00 04/05/25 14:30 04/05/25 14:30 Temperature Pulse Rate 92 H Respiratory Rate 24 Blood Pressure 143/69 H 149/69 H Pulse Oximetry 92 Oxygen Delivery Method Nasal Cannula Oxygen Flow Rate 2 04/05/25 15:00 04/05/25 15:00 04/05/25 15:30 Temperature Pulse Rate 92 H 91 H Respiratory Rate Blood Pressure 145/69 H Pulse Oximetry 93 94 Oxygen Delivery Method Nasal Cannula Oxygen Flow Rate 2 04/05/25 15:30 04/05/25 15:52 04/05/25 16:00 Temperature 98.4 F Pulse Rate Respiratory Rate Blood Pressure 141/66 H 129/67 Pulse Oximetry Oxygen Delivery Method Oxygen Flow Rate 04/05/25 16:00 04/05/25 16:30 04/05/25 16:30 Temperature Pulse Rate 94 H 92 H Respiratory Rate Blood Pressure 132/63 Pulse Oximetry 95 94 Oxygen Delivery Method Oxygen Flow Rate 04/05/25 17:00 04/05/25 17:00 04/05/25 17:44 Temperature 96.9 F L Pulse Rate 88 91 H Respiratory Rate 18 Blood Pressure 132/61 143/63 H Pulse Oximetry 92 91 Oxygen Delivery Method Nasal Cannula Oxygen Flow Rate 2 Oxygen Delivery Method Nasal Cannula Oxygen Flow Rate 2 Narrative Exam Narrative: Alert female in no acute distress on oxygen and relatively short with her breathing. HEENT exam is unremarkable neck supple without adenopathy JVD or bruits lungs with decreased breath sounds throughout and wheeze. No rhonchi. No retractions Heart is regular rate and rhythm. Abdomen is benign extremities no active palpable masses Objective Labs 04/05/25 14:55 04/05/25 15:27 Labs: Laboratory Results - last 24 hr 04/05/25 04/05/25 04/05/25 11:20 14:55 15:27 WBC 8.4 RBC 4.47 Hgb 13.6 Hct 41.6 MCV 93.1 MCH 30.5 MCHC 32.8 RDW 14.5 Plt Count 230 Neut % (Auto) 93.2 H Lymph % (Auto) 4.9 L [place] % (Auto) 1.5 L Eos % (Auto) 0.2 L Baso % (Auto) 0.2 Neut # (Auto) 7800 H Lymph # (Auto) 400 L [place] # (Auto) 100 Eos # (Auto) 0 Baso # (Auto) 0 Sodium 137 Potassium 3.8 Chloride 106 Carbon Dioxide 26 BUN 15 Creatinine 0.69 Estimated GFR > 60 BUN/Creatinine Ratio 21.7 Glucose 157 H Calcium 10.8 H SARS-CoV-2 (PCR) Negative Influenza A (RT-PCR) Flu a negative Influenza B (RT-PCR) Flu b negative RSV (PCR) Negative Assessment & Plan Assessment & Plan narrative: Acute asthma exacerbation. Probably viral but will cover with Zithromax. Start with IV. Can switch to oral quickly. Patient failed outpatient oral steroids at this point will start Solu-Medrol. We will continue albuterol nebulizations will add budesonide inhaled steroid. And can switch to inhaler when improving. Hopefully will be improved tomorrow but will have to see how quickly she turns the corner. Could be up to 72 hours. Will just have to see how she feels. No other changes. Respiratory therapy consult. Continue oxygen as needed Superficial DVT approaching the deep venous system. On Eliquis. Will continue. History of reflux. Will replace usual meds DVT prophylaxis on Eliquis GI prophylaxis not needed Code status full Disposition. Patient actually very tight right now. But feels like she is improved. Will continue supportive care and aggressive management of her asthma. She will need long-term outpatient treatment. With inhaled steroids but will see how things go. Time-Based Coding :: [TOTAL MINUTES] spent with patient and on the chart (including review of chart, obtaining history, exam, reviewing outside data, placing orders, documenting exam and treatment plan, and counseling patient) on [DATE]. Quality VTE Deep Vein Thrombosis/Pulmonary Embolism Present on Admission: No
[2025-04-05] MEDS: BUDESONIDE 0.5 MG/2 ML NEB INH (19:32)
[2025-04-05] MEDS: methylPREDNISolone succ 125 MG/2 ML VIAL 60 MG IV (20:07)
[2025-04-05] MEDS: AZITHROMYCIN 500 MG in DEXTROSE 5% IN WATER 250 ML 250 MG IV (20:07)
[2025-04-05] MEDS: APIXABAN 5 MG TABLET PO (20:09)
[2025-04-06] MEDS: methylPREDNISolone succ 125 MG/2 ML VIAL 60 MG IV (00:28)
[2025-04-06 06:00] VITALS: BP 141/67; PULSE 75; RESP 16; TEMP 36.2; O2SAT 94
[2025-04-06 07:00] VITALS: O2SAT 95
[2025-04-06 07:30] VITALS: BP 117/65; PULSE 88; RESP 16; TEMP 35.8; O2SAT 91
[2025-04-06 07:47] VITALS: PULSE 85; RESP 18; O2SAT 93
[2025-04-06] MEDS: BUDESONIDE 0.5 MG/2 ML NEB INH (07:47)
[2025-04-06] MEDS: ALBUTEROL 2.5 MG/3 ML NEB (ADULT) INH (07:47)
--- NOTE | 2025-04-06 08:39 | P.DS_ITS ---
History of Present Illness History of Present Illness Chief complaint: Shortness of breath Discharge Providers Provider Date of admission: 04/05/25 15:19 Discharge Date: 04/06/25 Primary care physician: Kemal Sanders MD Discharge provider: Valentino Tam MD Summary Hospital Course Discharge Diagnosis: Acute asthma exacerbation Superficial DVT Reflux Hospital Course: Patient admitted to the hospital with acute exacerbation of asthma. Symptoms have been going on now for about 4-6 weeks. He is doing many home therapies. Despite this failed outpatient home therapy was admitted to the hospital with IV and oral steroids. Patient states she feels 100% better this morning. In asking to go home. Patient will be discharged home. She will be continued with albuterol. She will be given Zithromax which was started here in the hospital. She will have a prednisone taper. We will go ahead and start her on a inhaled steroid and a long acting beta agonist. Exam Vital Signs (past 8 hours): - 04/06/25 06:00 04/06/25 07:30 04/06/25 07:47 Temperature 97.2 F L 96.5 F L Pulse Rate 75 88 85 Respiratory Rate 16 16 18 Blood Pressure 141/67 H 117/65 Pulse Oximetry 94 91 93 Oxygen Delivery Method Nasal Cannula Oxygen Flow Rate 2 2 Fraction of Inspired Oxygen 24 Fraction of Inspired Oxygen 24 SaO2/FiO2 Ratio 387 Oxygen Delivery Method Nasal Cannula Oxygen Flow Rate 2 Objective Labs 04/05/25 14:55 04/05/25 15:27 Labs: Laboratory Results - last 24 hr 04/05/25 04/05/25 04/05/25 11:20 14:55 15:27 WBC 8.4 RBC 4.47 Hgb 13.6 Hct 41.6 MCV 93.1 MCH 30.5 MCHC 32.8 RDW 14.5 Plt Count 230 Neut % (Auto) 93.2 H Lymph % (Auto) 4.9 L [place] % (Auto) 1.5 L Eos % (Auto) 0.2 L Baso % (Auto) 0.2 Neut # (Auto) 7800 H Lymph # (Auto) 400 L [place] # (Auto) 100 Eos # (Auto) 0 Baso # (Auto) 0 Sodium 137 Potassium 3.8 Chloride 106 Carbon Dioxide 26 BUN 15 Creatinine 0.69 Estimated GFR > 60 BUN/Creatinine Ratio 21.7 Glucose 157 H Calcium 10.8 H SARS-CoV-2 (PCR) Negative Influenza A (RT-PCR) Flu a negative Influenza B (RT-PCR) Flu b negative RSV (PCR) Negative [facility] Surgical History History of dental surgery Hx of dilation and curettage History of tonsillectomy and adenoidectomy Family History Father Heart disease Gallstones Brother Cancer Social History marital status: household members: spouse and children occupational status: employed Smoking Status: Never smoker alcohol intake: never substance use type: does not use Discharge Plan Discharge Plan Patient Disposition: Home Discharge orders & Medications Prescriptions: New azithromycin [Zithromax] 250 mg tablet 250 mg PO DAILY 4 Days Qty: 4 0RF Rx Instructions: start on day 2 of therapy prednisone 20 mg tablet 60 mg PO DAILY Qty: 30 0RF Rx Instructions: 60 mg for 4 days 40 mg for 4 days 20 mg for 4 days 20 mg for 4 day budesonide-formoterol [Symbicort] 160-4.5 mcg/actuation HFA aerosol inhaler 2 puff inhalation BID Qty: 10.2 0RF Continued albuterol sulfate 90 mcg/actuation HFA aerosol inhaler 1 inhalation INHALATION Q4-6H PRN (Reason: cough) Qty: 8 0RF Rx Instructions: administer with spacer (DME) plexus supplements 0 .ROUTE .MEDSUPPLY albuterol sulfate 2.5 mg /3 mL (0.083 %) solution for nebulization 2.5 mg inhalation Q4-6H PRN (Reason: shortness of breath or wheezing) Qty: 90 0RF albuterol sulfate 90 mcg/actuation HFA aerosol inhaler 2 puff inhalation Q4-6H PRN (Reason: shortness of breath or wheezing) Qty: 8.5 0RF pantoprazole 40 mg tablet,delayed release (DR/EC) 40 mg PO DAILY Eliquis 5 mg tablet 5 mg PO BID Follow up/Referrals: Kemal Sanders MD [Primary Care Provider, Family Practice] Visit Report/Discharge Packet Stand Alone Forms: Patient Portal/API, Stroke Signs & Symptoms Discharge Data Primary Care Provider: Kemal Sanders Attending Provider: Kemal Sanders Admit Date/Time: 04/05/25 15:19 Quality VTE Deep Vein Thrombosis/Pulmonary Embolism Present on Admission: No [facility] Charge Codes Discharge inpatient/observation: 22033
[2025-04-06] MEDS: PANTOPRAZOLE DR 40 MG TABLET PO (09:02)
[2025-04-06] MEDS: APIXABAN 5 MG TABLET PO (09:02)
--- NOTE | 2025-04-06 09:28 | PC.NURSE ---
Addendum entered by Chelsea Boateng, RN 04/06/25 10:14: Pt SL D/C'd Home instructions given w/understanding. Pt escorted by staff via W/C to waiting vehicle D/C in stable status Original Note: Pt A/O Continues w/ O2 as needed. SL intact/patent. Independent to [facility] in to see, orders for D/C received. Call light w/in reach, pt calls appropriately for needs. Continue w/plan of care.
--- NOTE | 2025-04-06 12:30 | CM.DANOTE ---
B DCP Assessment note pt is a 74yo F admitted with acute asthma exacerbation. per chart review, lives indep with spouse on [place]. per Yonatan note, cleared to dc home today. pt left prior to being seen by this [facility] ATTENDANT no DCP needs identified per chart review P: dc home today with OP f/u anticipated. no identified barriers to safe dc home. SANDIP Schumacher Discharge Planning/Care Management CM Discharge Assessment Start: 04/05/25 15:27 Freq: Status: Discharge Protocol: Document 04/06/25 12:29 SL (Rec: 04/06/25 12:30 [id number]) Discharge Planning Assessment Assigned Discharge SANDIP Cole Director Of Assessment Provider [facility] Insurance Medicare DPOA/Assigned Charles, spouse Designee Name Contact Information [phone] Advance Directives? No History Provided By Patient,Medical Record Prior Living House Arrangements Household Members spouse,children Independent with ADL Yes 's Is patient alert and Yes oriented? Barriers to No Discharge Discharge Plan Home Transportation spouse/ferry Arrangement Referrals Initiated None needed Review Status In Process Please Provide Date 04/06/25 Initial DC Assessment Was Performed Next Review Type Continued Stay Review
== END 2025-04-06 10:10 | disposition home or self-care (01) | DRG 203 ==
LOC: ED 15:13 → AC 04-06 08:41
PROVIDERS: Admitting Provider Family Medicine; Emergency Provider Student in an Organized Health Care Education/Training Program; PCP Family Medicine; Referring Provider Student in an Organized Health Care Education/Training Program; Visit Provider Family Medicine
DX: J45.901 Unspecified asthma with (acute) exacerbation (principal); K21.9 Gastro-esophageal reflux disease without esophagitis; I80.02 Phlebitis and thrombophlebitis of superficial vessels of left lower extremity; Z79.01 Long term (current) use of anticoagulants
CPT/HCPCS: 36415; 71046; 80048; 85025; 87637; 93005; 94150; 94640; 94760; 99285; G0378; J2919; J7060; J7613

== ENCOUNTER → 2025-04-29 09:38 | Outpatient (CLI) | payer MEDICARE, SELFPAY ==
[2025-04-05 17:14] VITALS: BMI 21.9
--- NOTE | 2025-04-29 09:42 | DI.RAD.S_ITS ---
PROCEDURE: XR HIP W PEL IF DONE RT 2V INDICATIONS: R HIP PAIN TECHNIQUE: AP pelvis with lateral view(s) of the right hip(s). COMPARISON: None. FINDINGS: Bones: No fractures or dislocations. Pelvic ring appears intact. No suspicious bony lesions. Severe right and moderate left hip joint space narrowing with periarticular osteophyte formation. Degenerative disc and facet disease involves the inferior lumbar spine. Soft tissues: The visualized bowel gas pattern is normal. No suspicious soft tissue calcifications. 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 Dictated by: Joey Verde RRA Interpreted: Suraj Batista MD on 04/29/2025 at 10:34 Transcribed by: STEPHANIA on 04/29/2025 at 10:34 Approved by: Suraj Batista M.D. on 04/29/2025 at 14:33
== END ==
PROVIDERS: PCP Family Medicine; Referring Provider Family Medicine; Visit Provider Family Medicine
DX: M25.551 Pain in right hip (principal)
CPT/HCPCS: 73502